=== PATIENT | female | born 1945 | race Caucasian/White ===

== ENCOUNTER → 2023-11-19 11:40 | Outpatient (BNVA) | payer OTHER, SELFPAY | PROVIDERS: Visit Provider Psychiatry & Neurology Neurology | DX: G20.A1 Parkinson's disease without dyskinesia, without mention of fluctuations (principal); R26.9 Unspecified abnormalities of gait and mobility | CPT/HCPCS: 99202 ==

== ENCOUNTER 2024-05-12 15:49 | Outpatient (AMB) | payer OTHER, SELFPAY ==
[2024-05-12 15:52] VITALS: BP 134/82
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
== END 2024-05-12 16:24 | disposition home or self-care (01) ==
PROVIDERS: Visit Provider Psychiatry & Neurology Neurology
DX: G20.A1 Parkinson's disease without dyskinesia, without mention of fluctuations (principal); R26.9 Unspecified abnormalities of gait and mobility
CPT/HCPCS: 99214; G2211

== ENCOUNTER → 2024-05-12 15:49 | Outpatient (BNVA) | payer OTHER, SELFPAY | PROVIDERS: Visit Provider Psychiatry & Neurology Neurology | DX: G20.A1 Parkinson's disease without dyskinesia, without mention of fluctuations (principal); R26.9 Unspecified abnormalities of gait and mobility | CPT/HCPCS: 99212 ==

== ENCOUNTER 2024-08-03 08:50 | Outpatient (AMB) | payer OTHER, SELFPAY ==
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
[2024-08-03 08:56] VITALS: BP 106/64; PULSE 65; O2SAT 97; BMI 33.6
== END 2024-08-03 10:06 | disposition home or self-care (01) ==
PROVIDERS: Visit Provider Physician Assistant Medical
DX: G20.A1 Parkinson's disease without dyskinesia, without mention of fluctuations (principal); M47.812 Spondylosis without myelopathy or radiculopathy, cervical region; R26.9 Unspecified abnormalities of gait and mobility
CPT/HCPCS: 99214; G2211

== ENCOUNTER 2025-05-24 08:40 | Outpatient (AMB) | payer OTHER, SELFPAY ==
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
[2025-05-24 08:42] VITALS: BP 124/76; PULSE 84; O2SAT 96
--- OUTSIDE RECORDS SUMMARY | 2025-05-24 09:08 | XMS_ITS | Encounter Summary ---
Author Organization Formerly [facility] Address [address] [place] [id number] Phone Care Team Providers Care Food Selector Name Role Phone Hugo Harrison MD Unavailable [phone] Maninder Avila MD Unavailable [phone] Sheila Prado MD Unavailable [phone] Sheila Prado MD Primary Care Provider + Encounter Details Date Type Department Care Team (Late st Contact Info) Description 03/07/2023 Procedure Pass [address] [place] [address] Social History Tobacco Use Types Packs/Day Years Used Date Smoking Tobacco: Never Smokeless Tobacco: Never Comments:Exposed to second h and smoke most of her life Alcohol Use Standard Drinks/Week Comments No 0 (1 standard drink = 0.6 oz pur e alcohol) Education Answer Date Recorded Are you interested in more education? Not on mason e 11/23/2022 Are you concerned about learning? Not on file 11/23/2022 No 11/23/2022 No 11/23/2022 Digital Access Answer Date Recorded No 12/24/2022 No 12/24/2022 Reliable internet access at home? Not on file 12/24/2022 Device with a working camera? Not on file Comments No Sex and Gender Information Value Date Recorded Sex Assigned at Female 07/01/2018 4:13 AM EST Legal Sex Female 10:07 PM EDT Gender Identity Female 07/01/2018 4:13 AM EST Sexual Orientation Straight 03/08/2020 2: 08 PM EDT documented as of this encounter Plan of Treatment Not on file documented as of this encounter Visit Diagnoses Not on filedocumented in this encounter Care Teams Food Selector Relationship Specialty Start Date End Date Sheila Prado MD [address] [place] [id number] PCP - General 05/13/17 Hugo Harrison MD [address] [place] [address], [address] [id number] Historical LMR Provider 05/13/17 Maninder Avila MD [address] [place] [id number] Historical LMR Provider 05/13/17 Sheila Prado MD [address] [place] [id number] Historical LMR Provider 05/13/17 documented as of this encounter Additional Source Comments The information contained in this document represents components of the legal health record. It is not the complete legal health record.[facility]ly [facility]
--- OUTSIDE RECORDS SUMMARY | 2025-05-24 09:08 | XMS_ITS | Encounter Summary ---
Author Organization [facility] Address [address] [place] [address] [place] [address] Phone Care Team Providers Care Tea Bag Machine Tender Name Role Phone Hugo Harrison MD Unavailable [phone] Maninder Avila MD Unavailable Sheila Pardo MD Unavailable Sheila Prado MD Primary Care Provider + Encounter Details Date Type Department Care Team (Late st Contact Info) Description 02/28/2023 Ancillary Orders [facility], X-Ray - [address] [phone] Katie Burgos, RUBBER GRINDER [address] [place] [phone] [email or web address] Spinal stenosis, lumbar region with neurogenic claudication; Radiculopathy, lumbar region Social History Tobacco Use Types Packs/Day Years [...] on file documented as of this encounter Results * XR LUMBOSACRAL SPINE 4 OR MORE VIEWS (02/28/2023 4:27 PM EDT) Anatomical Region Laterality Modality L-spine Computed Radiogr aphy 03/03/2023 11:5 6 PM EDT Impressions 03/03/2023 11:57 PM EDT Moderate lumbar spine degenerative change, most prominent at L5-S1. Narrative 03/03/2023 11:57 PM EDT XR LUMBOSACRAL SPINE 4 OR MORE VIEWS COMPARISON: MRI SPINE LUMBAR WO FINDINGS: ALIGNMENT: No spondylolisthesis. VERTEBRAE: Bones demineralized. Vertebral body heights preserved. DISCS: Disc height loss and endplate sclerosis and marginal osteophytes at L5- S1. FACETS: Facet arthropathy L3-S1. PARASPINAL SOFT TISSUES: Mild to moderate sacroiliac joint degenerative change. Surgical clip in the right upper quadrant. Procedure Note Lisandra Dickson MD - 03/03/2023 XR LUMBOSACRAL SPINE 4 OR MORE VIEWS COMPARISON: MRI SPINE LUMBAR WO FINDINGS: ALIGNMENT: No spondylolisthesis. VERTEBRAE: Bones demineralized. Vertebral body heights preserved. DISCS: Disc height loss and endplate sclerosis and marginal osteophytes atL5-S1. FACETS: Facet arthropathy L3-S1. PARASPINAL SOFT TISSUES: Mild to moderate sacroiliac joint degenerativechange. Surgical clip in the right upper quadrant. IMPRESSION: Moderate lumbar spine degenerative change, most prominent at L5-S1. Katie Burgos NP IMG XR SPINE Final Result * XR HIPS 2+ VW EA BILAT PLUS PELVIS (02/28/2023 4:27 PM EDT) Anatomical Region Laterality Modality Hip, Pelvis Computed Radiogr aphy 03/03/2023 11:5 5 PM EDT Impressions 03/03/2023 11:56 PM EDT Bones demineralized. Severe hip osteoarthritis, progressed from 2016. Narrative 03/03/2023 11:56 PM EDT XR HIPS 2+ VW EA BILAT PLUS PELVIS COMPARISON: HIPS FINDINGS: PELVIS: Pelvic ring intact. No displaced fracture. Degenerative changes of the lower lumbar spine, sacroiliac joints, and pubic symphysis. Gluteal enthesopathy at the iliac crests. Bones demineralized. RIGHT HIP: Severe right hip joint space narrowing with dicg-zu-hxgf contact, femoral head remodeling, and exuberant bony proliferative change. LEFT HIP: Severe hip joint space narrowing with ewsx-rm-mucy contact, femoral head remodeling, and exuberant bony proliferative change. Procedure Note Lisandra Dickson MD - 03/03/2023 XR HIPS 2+ VW EA BILAT PLUS PELVIS COMPARISON: HIPS 2015- FINDINGS: PELVIS: Pelvic ring intact. No displaced fracture. Degenerative changes ofthe lower lumbar spine, sacroiliac joints, and pubic symphysis. Glutealenthesopathy at the iliac crests. Bones demineralized. RIGHT HIP: Severe right hip joint space narrowing with olln-mf-jfyolanmjsu, femoral head remodeling, and exuberant bony proliferativechange. LEFT HIP: Severe hip joint space narrowing with mkfg-pu-nvps contact,femoral head remodeling, and exuberant bony proliferative change. IMPRESSION: Bones demineralized. Severe hip osteoarthritis, progressed from 2016. Katie Burgos NP IMG XR PELVIS Final Result documented in this encounter Visit Diagnoses Diagnosis Spinal stenosis, lumbar region with neurogenic claudication Radiculopathy, lumbar region Thoracic or lumbosacral neuritis or radiculitis, unspecified Radiculopathy, lumbar region Thoracic or lumbosacral neuritis or radiculitis, unspecified Spinal stenosis, lumbar region with neurogenic claudication documented in this encounter Care Teams Tea Bag Machine Tender Relationship Specialty Start Date End Date Sheila Prado MD [address] [place] [address] PCP - General 05/13/17 Hugo Harrison MD [address] [place] [address] Historical LMR Provider 05/13/17 Maninder Avila MD [address] [place] [address] Historical LMR Provider 05/13/17 Sheila Prado MD [address] [place] [address] Historical LMR Provider 05/13/17 documented as of this encounter Additional Source Comments The information contained in this document represents components of the legal health record. It is not the complete legal health record.[facility]
--- OUTSIDE RECORDS SUMMARY | 2025-05-24 09:08 | XMS_ITS | Encounter Summary ---
Author Organization [facility] Address [address] [address] Phone Care Team Providers Care Unhairing Inspector Name Role Phone Taylor Brand PA-C Unavailable Kyle Callejas MD Unavailable Hugo Harrison MD Unavailable Tommy Newell MD Unavailable [phone] Maninder Avila MD Unavailable Matthias Delgado MD Unavailable Sheila Prado MD Unavailable Aliya Huggins MD Unavailable Sheila Prado MD Primary Care Provider + Encounter Details Date Type Department Care Team (Late st Contact Info) Description 02/10/2020 Ancillary Orders Virtual Department [address] [place] [address] Sheila Prado MD [address] [place] [address] [email or web address] Pain and swelling of lower extremity, left Social History Tobacco Use Types Packs/Day Years Used Date Smoking Tobacco: Never Smokeless Tobacco: Never Comments:Exposed to second h and smoke most of her life Alcohol Use Standard Drinks/Week Comments No 0 (1 standard drink = 0.6 oz pur e alcohol) Comments No Sex and Gender Information Value Date Recorded Sex Assigned at Female 07/01/2018 4:13 AM EST Legal Sex Female 10:07 PM EDT Gender Identity Female 07/01/2018 4:13 AM EST Sexual Orientation Straight 03/08/2020 2: 08 PM EDT documented as of this encounter Plan of Treatment Not on file documented as of this encounter Results * US Lower Extremity Veins Duplex (Left) (02/10/2020 2:40 PM EDT) Anatomical Region Laterality Modality Hip Left, Thigh Left, Knee L eft, Leg Left, Ankle Left, Foot Left Ultrasound 02/10/2020 3:07 PM EDT Impressions 02/10/2020 3:07 PM EDT No evidence of deep venous thrombosis in left lower extremity. POS - [id number] Narrative 02/10/2020 3:07 PM EDT HISTORY: Pain and swelling in the left lower extremity. COMPARISON:Left TECHNIQUE: Evaluation of the deep venous system of the left lower extremity is performed, including the calf veins. FINDINGS: The veins of the deep venous system of the left leg is clear and compresses normally. Normal Doppler flow was demonstrated. Augmentation maneuvers are normal. No evidence of masses in the popliteal fossa. Procedure Note Delbert Maria MD - 02/10/2020 HISTORY: Pain and swelling in the left lower extremity. COMPARISON:Left TECHNIQUE: Evaluation of the deep venous system of the left lowerextremity is performed, including the calf veins. FINDINGS: The veins of the deep venous system of the left leg is clear andcompresses normally. Normal Doppler flow was demonstrated. Augmentationmaneuvers are normal. No evidence of masses in the popliteal fossa. IMPRESSION: No evidence of deep venous thrombosis in left lower extremity. POS - [id number] Sheila Prado MD US VASCULAR Final Re sult documented in this encounter Visit Diagnoses Diagnosis Pain and swelling of lower extremity, left Pain and swelling of lower extremity, left documented in this encounter Care Teams Unhairing Inspector Relationship Specialty Start Date End Date Sheila Prado MD [address] [place] [address] [email or web address] PCP - General 05/13/17 Taylor Brand PA-C [address] [place] [address] [email or web address] Historical LMR Provider 05/13/17 08/05/21 Kyle Callejas MD [address] [place] [address] [email or web address] Historical LMR Provider 05/13/17 08/05/21 Hugo Harrison MD [address] [place] [address] [email or web address] Historical LMR Provider 05/13/17 Tommy Newell MD [address] [place] [address] [email or web address] Historical LMR Provider 05/13/17 08/05/21 Maninder Avila MD [address] [place] [address] [email or web address] Historical LMR Provider 05/13/17 Matthias Delgado MD [address] [place] [address] [email or web address] Historical LMR Provider 05/13/17 08/05/21 Sheila Prado MD [address] [place] [address] [email or web address] Historical LMR Provider 05/13/17 Aliya Huggins MD [address] [place] [address] [email or web address] Historical LMR Provider 05/13/17 08/05/21 documented as of this encounter Additional Source Comments The information contained in this document represents components of the legal health record. It is not the complete legal health record.[facility]
--- OUTSIDE RECORDS SUMMARY | 2025-05-24 09:08 | XMS_ITS | Encounter Summary ---
Author Organization [facility] Address [address] [place] [address] Phone Care Team Providers Care Private Duty Rn Name Role Phone Hugo Harrison MD Unavailable [phone] Maninder Avila MD Unavailable [phone] Sheila Prado MD Unavailable [phone] Sheila Prado MD Primary Care Provider + Reason for Referral * MRI/CAT Scan - Closed Specialty Diagnoses / Procedures Referred By Contac t Referred To Contact Radiology Diagnoses Spinal stenosis, cervical region Procedures MRI Cervical Spine CHG MRI, CERV SPINE CHG MRI, CERV SPINE COMBO CHG MRI, CERV SPINE CONTRAST Katie Burgos NP Phone: tel: fax: [email or web address] Referral ID Status Reason Start Date Expiration Date Visits Re quested Visits Authorized [id number] Closed 02/28/2023 04/28/2023 1 1 Encounter Details Date Type Department Care Team (Latest Contact Info) Description 02/28/2023 Transcribe Orders Virtual Department 30 [place] [address] Katie Burgos NP [address] [place] [phone] [email or web address] Spinal stenosis, cervical region (Primary Dx) Social History Tobacco Use Types Packs/Day Years [...] documented as of this encounter Results * MRI CERVICAL SPINE (BONE) WITHOUT CONTRAST (03/21/2023 5:12 PM EDT) Anatomical Region Laterality Modality C-spine Magnetic Resonan ce 03/24/2023 1:21 PM EDT Impressions 03/24/2023 1:43 PM EDT Multilevel degenerative change of the cervical spine, which is progressed since 2016. There is severe left foraminal stenosis at C4-C5. Moderate to severe right foraminal stenosis at C5-C6. And moderate to severe spinal canal stenosis at C6-C7. No definite spinal cord signal abnormality. Narrative 03/24/2023 1:43 PM EDT MRI CERVICAL SPINE (BONE) WITHOUT CONTRAST TECHNIQUE: Multi-sequence, multi-planar MRI of the cervical spine was performed without intravenous contrast. COMPARISON: MRI SPINE CERVICAL WO FINDINGS: Grade 1 anterolisthesis of C3 on C4, C4 and C5, and C5 on C6. Retrolisthesis of C6 on C7. Alignment is relatively similar to 2016. No compression deformity. No substantial discogenic edema. Multilevel degenerative disc disease, most notable at C6-7. Slight deformity of the cervical spinal cord at C4-C5 and C6-C7. No definite spinal cord signal abnormality. Partially visualized intracranial structures are unremarkable. No acute finding or incidental knee soft tissues for which follow-up is required. Findings by level: C2-C3: Posterior disc osteophyte complex, with central protrusion. Moderate bilateral facet arthropathy, right greater than left. Ligamentum flavum thickening. Mild spinal canal and bilateral foraminal stenosis. Findings are progressed since 2016. C3-C4: Posterior disc osteophyte complex. Moderate bilateral facet arthropathy. Ligamentum flavum thickening. Mild spinal canal and bilateral foraminal stenosis. Findings are only minimally progressed since 2016. C4-C5: Endplate osteophytosis. Posterior disc osteophyte complex. Uncovertebral hypertrophy on the left. Moderate bilateral facet arthropathy. Mild spinal canal stenosis, with slight deformity of the ventral spinal cord. No signal abnormality. Severe left and moderate right foraminal stenosis. Findings are progressed since 2016. C5-C6: Posterior disc osteophyte complex. Bilateral uncovertebral hypertrophy, greater on left. Severe right and moderate left facet arthropathy. Moderate to severe right and rmyy-vp-nrlrbzrz left foraminal stenosis. Spinal canal stenosis is overall mild. Findings are progressed since 2016. C6-C7: Posterior disc osteophyte complex. Mild bilateral facet arthropathy. Ligamentum flavum thickening. Moderate to severe spinal canal stenosis, with indentation of the ventral spinal cord. No definite cord signal abnormality. Findings are progressed since 2016. There is moderate bilateral foraminal stenosis, left greater than right. C7-T1: Bilateral facet arthropathy. Mild bilateral foraminal stenosis. No substantial spinal canal stenosis. Findings are overall similar to 2016. Procedure Note Abdirizak Powell MD - 03/24/2023 MRI CERVICAL SPINE (BONE) WITHOUT CONTRAST TECHNIQUE: Multi-sequence, multi-planar MRI of the cervical spine wasperformed without intravenous contrast. COMPARISON: MRI SPINE CERVICAL WO FINDINGS: Grade 1 anterolisthesis of C3 on C4, C4 and C5, and C5 on C6.Retrolisthesis of C6 on C7. Alignment is relatively similar to 2016. Nocompression deformity. No substantial discogenic edema. Multileveldegenerative disc disease, most notable at C6-7. Slight deformity of thecervical spinal cord at C4-C5 and C6-C7. No definite spinal cord signalabnormality. Partially visualized intracranial structures areunremarkable. No acute finding or incidental knee soft tissues for whichfollow-up is required. Findings by level: C2-C3: Posterior disc osteophyte complex, with central protrusion.Moderate bilateral facet arthropathy, right greater than left. Ligamentumflavum thickening. Mild spinal canal and bilateral foraminal stenosis.Findings are progressed since 2016. C3-C4: Posterior disc osteophyte complex. Moderate bilateral facetarthropathy. Ligamentum flavum thickening. Mild spinal canal and bilateralforaminal stenosis. Findings are only minimally progressed since 2016. C4-C5: Endplate osteophytosis. Posterior disc osteophyte complex.Uncovertebral hypertrophy on the left. Moderate bilateral facetarthropathy. Mild spinal canal stenosis, with slight deformity of theventral spinal cord. No signal abnormality. Severe left and moderate rightforaminal stenosis. Findings are progressed since 2016. C5-C6: Posterior disc osteophyte complex. Bilateral uncovertebralhypertrophy, greater on left. Severe right and moderate left facetarthropathy. Moderate to severe right and nmtc-sk-tcfrnryb left foraminalstenosis. Spinal canal stenosis is overall mild. Findings are progressedsince 2016. C6-C7: Posterior disc osteophyte complex. Mild bilateral facetarthropathy. Ligamentum flavum thickening. Moderate to severe spinal canalstenosis, with indentation of the ventral spinal cord. No definite cordsignal abnormality. Findings are progressed since 2016. There is moderatebilateral foraminal stenosis, left greater than right. C7-T1: Bilateral facet arthropathy. Mild bilateral foraminal stenosis. Nosubstantial spinal canal stenosis. Findings are overall similar to 2016. IMPRESSION: Multilevel degenerative change of the cervical spine, which is progressedsince 2016. There is severe left foraminal stenosis at C4-C5. Moderate tosevere right foraminal stenosis at C5-C6. And moderate to severe spinalcanal stenosis at C6-C7. No definite spinal cord signal abnormality. Katie Burgos NP IMG MR XSPECIALTY Final Result documented in this encounter Visit Diagnoses Diagnosis Spinal stenosis, cervical region- Primary Spinal stenosis, cervical region documented in this encounter Care Teams Private Duty Rn Relationship Specialty Start Date End Date Sheila Prado MD [address] [place] [address] PCP - General 05/13/17 Hugo Harrison MD [address] [place] [address], [facility] [address] [place] [address] Historical LMR Provider 05/13/17 Maninder Avila MD [address] [place] [address] Historical LMR Provider 05/13/17 Sheila Prado MD [address] [place] [address] Historical LMR Provider 05/13/17 documented as of this encounter Additional Source Comments The information contained in this document represents components of the legal health record. It is not the complete legal health record.[facility]
--- OUTSIDE RECORDS SUMMARY | 2025-05-24 09:08 | XMS_ITS | Encounter Summary ---
Author Organization [facility] Address [address] [place] [address] Phone Care Team Providers Care Court Recorder Name Role Phone Taylor Brand PA-C Unavailable Kyle Callejas MD Unavailable [phone] Hugo Harrison MD Unavailable [phone] Tommy Newell MD Unavailable [phone] Maninder Avila MD Unavailable Matthias Delgado MD Unavailable Sheila Prado MD Unavailable Aliya Huggins MD Unavailable Sheila Prado MD Primary Care Provider + Encounter Details Date Type Department Care Team (Late st Contact Info) Description 12/29/2018 Ancillary Orders Virtual Department [address] [place] [address] Sheila Prado MD [address] [place] [phone] Breast screening Social History Tobacco Use Types Packs/Day Years Used Date Smoking Tobacco: Never Smokeless Tobacco: Never Comments:Exposed to second h and smoke most of her life Alcohol Use Standard Drinks/Week Comments No 0 (1 standard drink = 0.6 oz pur e alcohol) Comments Unknown Sex and Gender Information Value Date Recorded Sex Assigned at Female 07/01/2018 4:13 AM EST Legal Sex Female 10:07 PM EDT Gender Identity Female 07/01/2018 4:13 AM EST Sexual Orientation Straight 03/08/2020 2: 08 PM EDT documented as of this encounter Plan of Treatment Not on file documented as of this encounter Results * BI MAMMOGRAM SCREENING WITH TOMOSYNTHESIS WITH CAD (BILATERAL) (01/07/2019 1:10 PM EDT) Anatomical Region Laterality Modality Breast Left, Breast Right, Breast Bilateral Bila teral Mammography 01/07/2019 1:37 PM EDT Impressions 01/07/2019 1:42 PM EDT No mammographic evidence of malignancy. Recommend routine annual surveillance. BI-RADS CATEGORY: 2 - Benign finding. DENSITY: There are scattered fibroglandular densities. POS - CDHMAMA Narrative 01/07/2019 1:42 PM EDT 73-year-old female with no current breast symptoms. Comparison made to previous on 07/11/2015 which is the most recent and as far back as 05/15/2005. Interpretation made in conjunction with computer-aided detection and tomosynthesis. There are scattered areas of fibroglandular density. Mild increase in number of multiple benign bilateral scattered calcifications. There are no suspicious masses, areas of architectural distortion, or suspicious clusters of microcalcifications. Procedure Note Angella Velazquez MD - 01/07/2019 73-year-old female with no current breast symptoms. Comparison made toprevious on 07/11/2015 which is the most recent and as far back as1. Interpretation made in conjunction with computer-aideddetection and tomosynthesis. There are scattered areas of fibroglandular density. Mild increase innumber of multiple benign bilateral scattered calcifications. There are no suspicious masses, areas of architectural distortion, orsuspicious clusters of microcalcifications. IMPRESSION: No mammographic evidence of malignancy. Recommend routine annualsurveillance. BI-RADS CATEGORY: 2 - Benign finding. DENSITY: There are scattered fibroglandular densities. POS - CDHMAMA us Sheila Prado MD IMG MG EXAMS Final Re sult documented in this encounter Visit Diagnoses Diagnosis Breast screening Breast screening, unspecified Breast screening Breast screening, unspecified documented in this encounter Care Teams Court Recorder Relationship Specialty Start Date End Date Sheila Prado MD [address] [place] [address] [email or web address] PCP - General 05/13/17 Taylor Brand PA-C [address] [place] [address] Historical LMR Provider 05/13/17 08/05/21 Kyle Callejas MD [address] [place] [address] Historical LMR Provider 05/13/17 08/05/21 Hugo Harrison MD [address] [place] [address] [email or web address] Historical LMR Provider 05/13/17 Tommy Newell MD [address] [place] [address] Historical LMR Provider 05/13/17 08/05/21 Maninder Avila MD [address] [place] [address] [email or web address] Historical LMR Provider 05/13/17 Matthias Delgado MD [place] [facility] [address] [place] [address] [email or web address] Historical LMR Provider 05/13/17 08/05/21 Sheila Prado MD [address] [place] [address] [email or web address] Historical LMR Provider 05/13/17 Aliya Huggins MD [address] [place] [address] [email or web address] Historical LMR Provider 05/13/17 08/05/21 documented as of this encounter Additional Source Comments The information contained in this document represents components of the legal health record. It is not the complete legal health record.[facility]
--- OUTSIDE RECORDS SUMMARY | 2025-05-24 09:08 | XMS_ITS | Encounter Summary ---
Author Organization [facility] Address [address] [place] [address] Phone Care Team Providers Care Underground Production Foreperson Name Role Phone Hugo Harrison MD Unavailable Maninder Avila MD Unavailable [phone] Sheila Prado MD Unavailable Sheila Prado MD Primary Care Provider + Reason for Referral * MRI/CAT Scan - Closed Specialty Diagnoses / Procedures Referred By Contac t Referred To Contact Radiology Diagnoses Spondylolisthesis, unspecified spinal region Procedures MRI Lumbar Spine CHG MRI, LUMBAR SPINE CHG MRI, LUMBAR SPINE COMBO CHG MRI, LUMBAR SPINE CONTRAST Katie Burgos NP Phone: tel: fax: [email or web address] Referral ID Status Reason Start Date Expiration Date Visits Re quested Visits Authorized [id number] Closed 02/28/2023 04/28/2023 1 1 Encounter Details Date Type Department Care Team (Latest Contact Info) Description 03/07/2023 Transcribe Orders Virtual Department [address] [place] [address] Katie Burgos NP [address] [place] [phone] [email or web address] Spondylolisthesis, unspecified spinal region (Primary Dx) Social History Tobacco Use [...] as of this encounter Results * MRI LUMBAR SPINE (NEURO) WITHOUT CONTRAST (03/29/2023 5:43 PM EDT) Anatomical Region Laterality Modality L-spine Magnetic Resonan ce 04/01/2023 10:2 5 PM EDT Impressions 04/03/2023 10:28 PM EDT Congenitally short pedicles. When compared to 03/07/2016: Worsening multilevel spinal canal stenoses, now severe at L2-3, moderate to severe L3-4, moderate at L4-5, and mild at T11-T12 and L1-L2. Multilevel neuroforaminal stenoses, moderate at L2-3, moderate left and mild right L3-4, and mild at L1-2, L4-5, and L5-S1. Increasing facet bone marrow edema at L4-5, may reflect an axial pain generator. Narrative 04/03/2023 10:28 PM EDT MRI LUMBAR SPINE (NEURO) WITHOUT CONTRAST TECHNIQUE: MRI LUMBAR SPINE (NEURO) WITHOUT CONTRAST COMPARISON: MRI SPINE LUMBAR WO FINDINGS: ALIGNMENT: No spondylolisthesis. MARROW: No compression fracture or marrow replacing lesion. DISCS: Disc desiccation T11-12, L1-L3 and L5-S1. Endplate marrow edema at T11- 12. CONUS: Normal appearance and terminates at L1. PARASPINAL SOFT TISSUES: Moderate posterior paraspinal muscle atrophy. Facet bone marrow and surrounding soft tissue edema at L4-5. FINDINGS BY LEVEL: Congenitally short pedicles. T11-T12: Diffuse disc bulge, facet arthropathy, and thickening of ligamentum flavum. Mild spinal canal. No neuroforaminal stenosis. T12-L1:Diffuse disc bulge, facet arthropathy, and thickening of ligamentum flavum. No spinal canal or neuroforaminal stenosis. L1-2: Diffuse disc bulge, facet arthropathy, and thickening of ligamentum flavum. Mild spinal canal stenosis. Mild neuroforaminal stenosis. L2-3: Diffuse disc bulge, facet arthropathy, and thickening of ligamentum flavum. Severe spinal canal stenosis. Moderate neuroforaminal stenosis. L3-4: Diffuse disc bulge, facet arthropathy, and thickening of ligamentum flavum. Moderate to severe spinal canal stenosis. Moderate left and mild right neuroforaminal stenosis. L4-5: Diffuse disc bulge, facet arthropathy, and thickening of ligamentum flavum. Moderate spinal canal stenosis. Mild neuroforaminal stenosis. L5-S1: Diffuse disc bulge, central disc protrusion, facet arthropathy, and thickening of ligamentum flavum. No spinal canal stenosis. Mild neuroforaminal stenosis. Procedure Note Lisandra Dickson MD - 04/03/2023 MRI LUMBAR SPINE (NEURO) WITHOUT CONTRAST TECHNIQUE: MRI LUMBAR SPINE (NEURO) WITHOUT CONTRAST COMPARISON: MRI SPINE LUMBAR WO FINDINGS: ALIGNMENT: No spondylolisthesis. MARROW: No compression fracture or marrow replacing lesion. DISCS: Disc desiccation T11-12, L1-L3 and L5-S1. Endplate marrow edema [id number]. CONUS: Normal appearance and terminates at L1. PARASPINAL SOFT TISSUES: Moderate posterior paraspinal muscle atrophy.Facet bone marrow and surrounding soft tissue edema at L4-5. FINDINGS BY LEVEL: Congenitally short pedicles. T11-T12: Diffuse disc bulge, facet arthropathy, and thickening ofligamentum flavum. Mild spinal canal. No neuroforaminal stenosis. T12-L1:Diffuse disc bulge, facet arthropathy, and thickening of ligamentumflavum. No spinal canal or neuroforaminal stenosis. L1-2: Diffuse disc bulge, facet arthropathy, and thickening of ligamentumflavum. Mild spinal canal stenosis. Mild neuroforaminal stenosis. L2-3: Diffuse disc bulge, facet arthropathy, and thickening of ligamentumflavum. Severe spinal canal stenosis. Moderate neuroforaminal stenosis. L3-4: Diffuse disc bulge, facet arthropathy, and thickening of ligamentumflavum. Moderate to severe spinal canal stenosis. Moderate left and mildright neuroforaminal stenosis. L4-5: Diffuse disc bulge, facet arthropathy, and thickening of ligamentumflavum. Moderate spinal canal stenosis. Mild neuroforaminal stenosis. L5-S1: Diffuse disc bulge, central disc protrusion, facet arthropathy, andthickening of ligamentum flavum. No spinal canal stenosis. Mildneuroforaminal stenosis. IMPRESSION: Congenitally short pedicles. When compared to 03/07/2016: Worsening multilevel spinal canal stenoses, now severe at L2-3, moderateto severe L3-4, moderate at L4-5, and mild at T11-T12 and L1-L2. Multilevel neuroforaminal stenoses, moderate at L2-3, moderate left andmild right L3-4, and mild at L1-2, L4-5, and L5-S1. Increasing facet bone marrow edema at L4-5, may reflect an axial paingenerator. Katie Burgos NP IMG MR XSPECIALTY Final Result documented in this encounter Visit Diagnoses Diagnosis Spondylolisthesis, unspecified spinal region- Primary Spondylolisthesis, unspecified spinal region documented in this encounter Care Teams Underground Production Foreperson Relationship Specialty Start Date End Date Sheila Prado MD [address] [place] [address] [email or web address] PCP - General 05/13/17 Hugo Harrison MD [address] [place] [address], [facility] [address] [place] [address] [email or web address] Historical LMR Provider 05/13/17 Maninder Avila MD [address] [place] [address] [email or web address] Historical LMR Provider 05/13/17 Sheila Prado MD [address] [place] [address] [email or web address] Historical LMR Provider 05/13/17 documented as of this encounter Additional Source Comments The information contained in this document represents components of the legal health record. It is not the complete legal health record.[facility]
--- OUTSIDE RECORDS SUMMARY | 2025-05-24 09:08 | XMS_ITS | Encounter Summary ---
Author Organization [facility] Address [address] [place] [address] Phone Care Team Providers Care Earth Science Teacher Name Role Phone Taylor Brand PA-C Unavailable Kyle Callejas MD Unavailable [phone] Hugo Harrison MD Unavailable [phone] Tommy Newell MD Unavailable [phone] Maninder Avila MD Unavailable [phone] Matthias Delgado MD Unavailable Sheila Prado MD Unavailable [phone] Aliya Huggins MD Unavailable Sheila Prado MD Primary Care Provider + Encounter Details Date Type Department Care Team (Latest Contact Info) Description 12/25/2017 Transcribe Orders [address] [place] [address] Sheila Prado MD [address] [place] [address] [email or web address] Type 2 diabetes mellitus without complication, unspecified fdc insulin use status (Primary Dx); Pure hypercholesterolemia Social History Tobacco Use Types Packs/Day Years Used Date Smoking Tobacco: Never Smokeless Tobacco: Never Comments:Exposed to second h and smoke most of her life Comments Unknown Sex and Gender Information Value Date Recorded Sex Assigned at Female 07/01/2018 4:13 AM EST Legal Sex Female 10:07 PM EDT Gender Identity Female 07/01/2018 4:13 AM EST Sexual Orientation Straight 03/08/2020 2: 08 PM EDT documented as of this encounter Plan of Treatment Not on file documented as of this encounter Results * (ABNORMAL) Microalbumin/creatinine ratio, random urine (12/25/2017 7:19 AM EDT) URINE MICROALBUMIN 2.7(H) 0 - 2.3 mg/dL [facility] URINE CREATININE 286 mg/dL [facility] MICROALB/CRE RATIO 9.4 0 - 20 mg/g Cre [facility] Urine (Urine) 12/25/2017 7:1 9 AM EDT 12/25/2017 7:22 AM EDT us Sheila Prado MD URINE ORDERABLES Final R esult Performing Organization Address City/State/[facility] Co de Phone Number [address] [address] * (ABNORMAL) Lipid panel (12/25/2017 7:19 AM EDT) HDL 63 mg/dL [facility] Comment: Interpretation: Risk Level Females Decreased >55mg/dL Average 50-55 mg/dL Increased <50 mg/dL CHOLESTEROL 146 0 - 240 mg/dL [facility] TRIGLYCERIDES 119 30 - 160 mg/dL [facility] LDL 59 50 - 129 mg/dL [facility] Comment: LDL levels in terms of risk for coronary heart disease: <100 mg/dL: Optimal 100-129 mg/dL: Near or above optimal 130-159 mg/dL: Borderline high 160-189 mg/dL: High >190 mg/dL: Very High CARDIAC RISK RATIO 2.3(L) 3.3 - 4.4 C [facility] Blood 12/25/2017 7:19 AM EDT 12/25/2017 7:21 AM EDT us Sheila Prado MD LAB BLOOD ORDERABLES Fin al Result Performing Organization Address City/[facility]/ZIP Co de Phone Number [address] [address] * (ABNORMAL) Comprehensive metabolic panel (12/25/2017 7:19 AM EDT) SODIUM 145 133 - 146 mmol/L [facility] POTASSIUM 5.0 3.3 - 5.1 mmol/L [facility] CHLORIDE 104 96 - 108 mmol/L [facility] CO2 28 21 - 35 mmol/L [facility] BUN 19 6 - 19 mg/dL [facility] CREATININE 1.00 0.5 - 1.5 mg/dL [facility] GLUCOSE 114(H) 70 - 99 mg/dL [facility] ALBUMIN 4.2 3.9 - 4.8 g/dL [facility] TOTAL PROTEIN 7.9 6.5 - 8.0 g/dL [facility] CALCIUM 9.7 8.4 - 10.3 mg/dL [facility] ALKALINE PHOSPHATASE 78 39 - 117 U/L [facility] TOTAL BILIRUBIN 0.3 0.0 - 1.2 mg/dL [facility] AST 23 0 - 37 U/L [facility] ALT 15 0 - 40 U/L [facility] GLOBULIN 3.7 1 - 4.8 g/dL [facility] EGFR 57(L) >59 mL/min/1.7 3m2 [facility] Comment:If patient is black, multiply result by 1.159. The eGFR calculation has changed from the MDRD equation to the CKD-EPI equation as of October 01, 2017. ANION GAP 18 10 - 20 mmol/L [facility] Blood 12/25/2017 7:19 AM EDT 12/25/2017 7:21 AM EDT us Sheila Prado MD LAB BLOOD ORDERABLES Fin al Result [address] [address] * C-reactive protein, high sensitivity (12/25/2017 7:19 AM EDT) CRP, HIGH SENSITIVITY 0.4 0.0 - 5.0 mg/L [facility] Comment: Interpretation: hsCRP level (mg/L) Relative Risk <1.0 Low 1.0 - 3.0 Average >3.0 High Neonates (0-3 weeks): 0.1 - 4.1 mg/L Children (2 months - 15 years): 0.1 - 2.8 mg/L New Reference Range and Measuring Units effective 12/10/2017. Blood 12/25/2017 7:19 AM EDT 12/25/2017 7:21 AM EDT us Sheila Prado MD LAB BLOOD ORDERABLES Fin al Result Performing Organization Address [facility]/ZIP Co de Phone Number [address] [address] * (ABNORMAL) Hemoglobin A1c (12/25/2017 7:19 AM EDT) HEMOGLOBIN A1C 6.3(H) 4.3 - 5.8 % [facility] Blood 12/25/2017 7:19 AM EDT 12/25/2017 7:21 AM EDT us Sheila Prado MD LAB BLOOD ORDERABLES Fin al Result Performing Organization Address [facility]/ZIP Co de Phone Number [address] [address] documented in this encounter Visit Diagnoses Diagnosis Type 2 diabetes mellitus without complication, unspecified fdc insulin use status- Primary Pure hypercholesterolemia documented in this encounter Care Teams Earth Science Teacher Relationship Specialty Start Date End Date Sheila Prado MD [address] [place] [address] [email or web address] PCP - General 05/13/17 Taylor Brand PA-C [address] [place] [address] Historical LMR Provider 05/13/17 08/05/21 Kyle Callejas MD [address] [place] [address] [email or web address] Historical LMR Provider 05/13/17 08/05/21 Hugo Harrison MD [address] [place] [address] [email or web address] Historical LMR Provider 05/13/17 Tommy Newell MD [address] [place] [address] [email or web address] Historical LMR Provider 05/13/17 08/05/21 Maninder Avila MD [address] [place] [address] [email or web address] Historical LMR Provider 05/13/17 Matthias Delgado MD [address] [place] [address] [email or web address] Historical LMR Provider 05/13/17 08/05/21 Sheila Prado MD [address] [place] [address] [email or web address] Historical LMR Provider 05/13/17 Aliya Huggins MD [address] [place] [address] [email or web address] Historical LMR Provider 05/13/17 08/05/21 documented as of this encounter Additional Source Comments The information contained in this document represents components of the legal health record. It is not the complete legal health record.[facility]
--- OUTSIDE RECORDS SUMMARY | 2025-05-24 09:08 | XMS_ITS | Encounter Summary ---
Author Organization [facility] Address [address] [place] [address] Phone Care Team Providers Care Automotive Software Engineer Name Role Phone Hugo Harrison MD Unavailable [phone] Maninder Avila MD Unavailable [phone] Sheila Prado MD Unavailable [phone] Sheila Prado MD Primary Care Provider + Encounter Details Date Type Department Care Team (Late st Contact Info) Description 02/28/2023 Procedure [facility], [address] [id number] Social History Tobacco Use Types Packs/Day Years [...] on filedocumented in this encounter Care Teams Automotive Software Engineer Relationship Specialty Start Date End Date Sheila Prado MD [address] [place] [address] PCP - General 05/13/17 Hugo Harrison MD [address] [place] [address] Historical LMR Provider 05/13/17 Maninder Avila MD [address] [place] [address] Historical LMR Provider 05/13/17 Sheila Prado MD [address] [place] [address] Historical LMR Provider 05/13/17 documented as of this encounter Additional Source Comments The information contained in this document represents components of the legal health record. It is not the complete legal health record.[facility]
--- OUTSIDE RECORDS SUMMARY | 2025-05-24 09:08 | XMS_ITS | Encounter Summary ---
Author Organization [facility] Address [address] [facility] [address] [place] [address] Phone Care Team Providers Care Solutions Engineer Name Role Phone Taylor Brand PA-C Unavailable Kyle Callejas MD Unavailable Hugo Harrison MD Unavailable Tommy Newell MD Unavailable [phone] Maninder Avila MD Unavailable Matthias Delgado MD Unavailable [phone] Sheila Pardo MD Unavailable Aliya Huggins MD Unavailable Sheila Prado MD Primary Care Provider + Encounter Details Date Type Department Care Team (Latest Contact Info) Description 12/26/2018 Transcribe Orders [address] [place] [address] Sheila Prado MD [address] [place] [address] [email or web address] Pure hypercholesterolemia (Primary Dx); Uncontrolled type 2 diabetes mellitus with hyperglycemia Social History Tobacco Use Types Packs/Day Years [...] documented as of this encounter Results * Microalbumin/creatinine ratio, random urine (12/26/2018 7:07 AM EDT) [facility] URINE MICROALBUMIN <1.2 0 - 2.3 mg/dL [facility] URINE CREATININE 177 mg/dL [facility] MICROALB/CRE RATIO NOT CALCULATED 0 - 20 mg/g Cre [facility] Comment:due to Microalbumin <1.2 Urine (Urine) 12/26/2018 7:0 7 AM EDT 12/26/2018 7:13 AM EDT us Sheila Prado MD URINE ORDERABLES Final R esult Performing Organization Address City/[facility]/ZIP Co de Phone Number [address] [address] * (ABNORMAL) Hemoglobin A1c (12/26/2018 7:07 AM EDT) [facility] HEMOGLOBIN A1C 6.2(H) 4.3 - 5.8 % [facility] Blood 12/26/2018 7:07 AM EDT 12/26/2018 7:10 AM EDT us Sheila Prado MD LAB BLOOD ORDERABLES Fin al Result Performing Organization Address City/[facility]/ZIP Co de Phone Number [address] [address] * C-reactive protein, high sensitivity (12/26/2018 7:07 AM EDT) [facility] CRP, HIGH SENSITIVITY 0.4 0.0 - 5.0 mg/L [facility] Comment: Interpretation: hsCRP level (mg/L) Relative Risk <1.0 Low 1.0 - 3.0 Average >3.0 High Neonates (0-3 weeks): 0.1 - 4.1 mg/L Children (2 months - 15 years): 0.1 - 2.8 mg/L Blood 12/26/2018 7:07 AM EDT 12/26/2018 7:10 AM EDT us Sheila Prado MD LAB BLOOD ORDERABLES Fin al Result Performing Organization Address City/[facility] Co de Phone Number [address] [address] * Ferritin (12/26/2018 7:07 AM EDT) FERRITIN 37 13 - 150 ug/L [facility] Blood 12/26/2018 7:07 AM EDT 12/26/2018 7:10 AM EDT us Sheila Prado MD LAB BLOOD ORDERABLES Fin al Result Performing Organization Address [facility] de Phone Number [address] [address] * TSH (12/26/2018 7:07 AM EDT) TSH 1.85 0.27 - 4.20 uIU/mL [facility] Blood 12/26/2018 7:07 AM EDT 12/26/2018 7:10 AM EDT us Sheila Prado MD LAB BLOOD ORDERABLES Fin al Result Performing Organization Address [facility] de Phone Number [address] [address] * (ABNORMAL) Comprehensive metabolic panel (12/26/2018 7:07 AM EDT) SODIUM 142 133 - 146 mmol/L [facility] POTASSIUM 4.5 3.3 - 5.1 mmol/L [facility] CHLORIDE 103 96 - 108 mmol/L [facility] CO2 26 21 - 35 mmol/L [facility] BUN 19 6 - 19 mg/dL [facility] CREATININE 0.80 0.5 - 1.5 mg/dL [facility] GLUCOSE 120(H) 70 - 99 mg/dL [facility] ALBUMIN 4.0 3.9 - 4.8 g/dL [facility] TOTAL PROTEIN 7.5 6.5 - 8.0 g/dL [facility] CALCIUM 9.8 8.4 - 10.3 mg/dL [facility] ALKALINE PHOSPHATASE 77 39 - 117 U/L [facility] TOTAL BILIRUBIN 0.4 0.0 - 1.2 mg/dL [facility] AST 22 0 - 37 U/L [facility] ALT 20 0 - 40 U/L [facility] GLOBULIN 3.5 1 - 4.8 g/dL [facility] EGFR 74 >59 mL/min/1.7 3m2 [facility] Comment:If patient is black, multiply result by 1.159. Estimated glomerular filtration rate calculated using the CKD-EPI equation. ANION GAP 18 10 - 20 mmol/L [facility] Blood 12/26/2018 7:07 AM EDT 12/26/2018 7:10 AM EDT us Sheila Prado MD LAB BLOOD ORDERABLES Fin al Result [facility] [address] [place] [address] * (ABNORMAL) Lipid panel (12/26/2018 7:07 AM EDT) HDL 59 mg/dL [facility] Comment: Interpretation <40 mg/dL: Low HDL cholesterol (major risk factor for CHD) Greater than or equal to 60 mg/dL: High HDL cholesterol ( negative risk factor for CHD) HDL - cholesterol is affected by a number of factors, e.g. smoking, excerise, hormones, sex and age. CHOLESTEROL 147 0 - 240 mg/dL [facility] TRIGLYCERIDES 145 30 - 160 mg/dL [facility] LDL 59 50 - 129 mg/dL [facility] Comment: LDL levels in terms of risk for coronary heart disease: <100 mg/dL: Optimal 100-129 mg/dL: Near or above optimal 130-159 mg/dL: Borderline high 160-189 mg/dL: High >190 mg/dL: Very High CARDIAC RISK RATIO 2.5(L) 3.3 - 4.4 [facility] Blood 12/26/2018 7:07 AM EDT 12/26/2018 7:10 AM EDT us Sheila Prado MD LAB BLOOD ORDERABLES Fin al Result [address] [address] documented in this encounter Visit Diagnoses Diagnosis Pure hypercholesterolemia- Primary Uncontrolled type 2 diabetes mellitus with hyperglycemia documented in this encounter Care Teams Solutions Engineer Relationship Specialty Start Date End Date Sheila Prado MD [address] [place] [address] PCP - General 05/13/17 Taylor Brand PA-C [address] [place] [address] Historical LMR Provider 05/13/17 08/05/21 Kyle Callejas MD [address] [place] [address] [email or web address] Historical LMR Provider 05/13/17 08/05/21 Hugo Harrison MD [address] [place] [address] [email or web address] Historical LMR Provider 05/13/17 Tommy Newell MD [address] [place] [address] Historical LMR Provider 05/13/17 08/05/21 Maninder Avila MD [address] [place] [address] [email or web address] Historical LMR Provider 05/13/17 Matthias Delgado MD [address] [place] [address] [email or web address] Historical LMR Provider 05/13/17 08/05/21 Sheila Prado MD [address] [place] [address] [email or web address] Historical LMR Provider 05/13/17 Aliya Huggins MD [address] [place] [address] [email or web address] Historical LMR Provider 05/13/17 08/05/21 documented as of this encounter Additional Source Comments The information contained in this document represents components of the legal health record. It is not the complete legal health record.[facility]
--- OUTSIDE RECORDS SUMMARY | 2025-05-24 09:09 | XMS_ITS | Encounter Summary ---
Author Organization [facility] Address [address] [place] [phone] Phone Care Team Providers Care Moisture Conditioner Operator Name Role Phone Taylor Brand PA-C Unavailable [phone] Kyle Callejas MD Unavailable Hugo [place] MD Unavailable [phone] Tommy Newell MD Unavailable [phone] Maninder Avila MD Unavailable Matthias Delgado MD Unavailable Sheila Prado MD Unavailable [phone] Aliya Huggins MD Unavailable Sheila Prado MD Primary Care Provider + Encounter Details Date Type Department Care Team (Latest Contact Info) Description 03/09/2020 Transcribe Orders [address] [place] [address] Alpesh Neves MD, [place] [address] [place], [place] [id number] Pre-op examination (Primary Dx) Social History Tobacco Use Types [...] documented as of this encounter Results * CBC (03/09/2020 1:17 PM EDT) WBC 6.01 4.00 - 11.00 K/uL [facility] Comment:Note Reference Range updates to all CBC and Differential results. RBC 4.54 3.72 - 5.30 M/uL [facility] HGB 14.4 11.4 - 15.9 g/dL [facility] Comment:Note updated Referen ce Ranges for all CBC and Differential results. HCT 40.9 34.2 - 46.8 % [facility] PLT 273 140 - 430 K/uL [facility] MCV 90.1 78.0 - 97.0 fL [facility] MCH 31.7 25.0 - 33.0 pg [facility] MCHC 35.2 32.0 - 36.0 g/dL [facility] RDW 12.3 11.0 - 16.0 % [facility] MPV 9.6 8.4 - 12.8 [facility] NRBC 0.00 0 /100 WBCs [facility] ABSOLUTE NRBC 0.00 0 K/uL [facility] Blood 03/09/2020 1:17 PM EDT 03/09/2020 1:21 PM EDT us Alpesh Neves MD, [place] LAB BLOOD ORDERABLES Final Result [facility] [address] [place] [address] * BUN (03/09/2020 1:17 PM EDT) BUN 18 6 - 19 mg/dL [facility] Blood 03/09/2020 1:17 PM EDT 03/09/2020 1:21 PM EDT SADIA Rodriguez MDA LAB BLOOD ORDERABLES Final Result Performing Organization Address [facility] Co de Phone Number [address] [address] * Creatinine/eGFR (03/09/2020 1:17 PM EDT) CREATININE 0.90 0.5 - 1.5 mg/dL [facility] EGFR 63 >59 mL/min/1.7 3m2 [facility] Comment:Estimated glomerular filtration rate calculated using the CKD-EPI equation. Blood 03/09/2020 1:17 PM EDT 03/09/2020 1:21 PM EDT Alpesh Neves MD, [place] LAB BLOOD ORDERABLES Final Result Performing Organization Address [facility] de Phone Number [address] [address] * PTT (03/09/2020 1:17 PM EDT) APTT 28.5 25.1 - 36.5 sec [facility] Comment:APTT response to unf ractionated heparin concentrations between 0.3 and 0.7 IU/mL is typically 54.0-94.0 seconds in uncomplicated cases. The Anti-Xa assay is the preferred method. Blood 03/09/2020 1:17 PM EDT 03/09/2020 1:21 PM EDT Alpesh Neves MD, [place] LAB BLOOD ORDERABLES Final Result Performing Organization Address [facility] Co de Phone Number [address] [address] * PT-INR (03/09/2020 1:17 PM EDT) PT 11.5 10.2 - 12.9 sec [facility] INR 1.0 0.9 - 1.1 [facility] Comment:Therapeutic range fo r oral Vitamin K antagonists: 2.0-3.5 Blood 03/09/2020 1:17 PM EDT 03/09/2020 1:21 PM EDT Alpesh Neves MD, K[place] LAB BLOOD ORDERABLES Final Result [address] [address] documented in this encounter Visit Diagnoses Diagnosis Pre-op examination- Primary documented in this encounter Care Teams Moisture Conditioner Operator Relationship Specialty Start Date End Date Sheila Prado MD [address] [place] [address] [email or web address] PCP - General 05/13/17 Taylor Brand PA-C [address] [place] [address] [email or web address] Historical LMR Provider 05/13/17 08/05/21 Kyle Callejas MD [address] [place] [address] [email or web address] Historical LMR Provider 05/13/17 08/05/21 [place] MD [address] [place] [address] [email or web address] Historical LMR Provider 05/13/17 Tommy [place] MD [address] [place] [address] [email or web address] Historical LMR Provider 05/13/17 08/05/21 Maninder Avila MD [address] [place] [address] [email or web address] Historical LMR Provider 05/13/17 Matthias Delgado MD [address] [address] [email or web address] Historical LMR Provider 05/13/17 08/05/21 Sheila Prado MD [address] [place] [address] [email or web address] Historical LMR Provider 05/13/17 Aliya [place]gins MD [address] [place] [address] [email or web address] Historical LMR Provider 05/13/17 08/05/21 documented as of this encounter Additional Source Comments The information contained in this document represents components of the legal health record. It is not the complete legal health record.[facility]
--- OUTSIDE RECORDS SUMMARY | 2025-05-24 09:09 | XMS_ITS | Encounter Summary ---
Author Organization [facility] Address [address] [place] [address] Phone Care Team Providers Care Building Carpenter Name Role Phone Taylor Brand PA-C Unavailable Kyle Callejas MD Unavailable [phone] [place] MD Unavailable [phone] Tommy Newell MD Unavailable [phone] Maninder Avila MD Unavailable [phone] Matthias Delgado MD Unavailable [phone] Sheila Prado MD Unavailable [phone] Aliya Huggins MD Unavailable Sheila Prado MD Primary Care Provider + Reason for Referral * MRI/CAT Scan - Closed Specialty Diagnoses / Procedures Referred By Contac t Referred To Contact Radiology Diagnoses Coronary artery disease involving s[place]mie heart without angina pectoris, unspecified vessel or lesion type Precordial pain Procedures NC Myocardial Perfusion Stress Single NC Myocardial Perfusion Pharmacologic Stress Multiple Hugo [place] MD Phone: tel: fax: [email or web address] Referral ID Status Reason Start Date Expiration Date Visits Re quested Visits Authorized [id number] Closed 09/10/2017 11/08/2017 1 1 Encounter Details Date Type Department Care Team (Latest Contact Info) Description 09/24/2017 Ancillary Orders [facility] [address] [facility] [address], [address] [place] [address] [place] MD [address] [facility], [address] [place] [address] [email or web address] Coronary artery disease involving s[place]qualmie heart without angina pectoris, unspecified vessel or lesion type; Precordial pain Social History Tobacco Use Types Packs/Day Years [...] documented as of this encounter Results * NC Myocardial Perfusion Stress Single (09/24/2017 2:06 PM EST) Anatomical Region Laterality Modality Heart Ultrasound Narrative 09/27/2017 8:47 AM EST Normal study. There is no evidence of myocardial infarction or ischemia. Normal LV size and function with no regional wall motion abnormalities. Very low likelihood of hemodynamically significant coronary artery disease. Low risk study for myocardial events or cardiac in the next two years. Study Quality Overall image quality is good. There are no artifacts present. NC Study Impression Left ventricular perfusion is normal. Interpretation of the study indicates that it is normal. This is a low risk study. There is no prior study for comparison. Stress Test Result [facility] Exercise Stress Test Report: Reason for termination: Protocol complete Summary: Resting ECG: SR HR 68 NSSTW, IVCD Functional capacity: Not assessed Heart rate response to exercise: Not assessed Blood pressure response to exercise: Not assessed Chest pain: none Arrhythmias: none ST-T changes: none Overall impression: Nondiagnostic stress test Conclusion: Pharmacologic stress test. Patient unable to complete test on TM due arthritis. The patient was infused with 0.4 mg of Regadenoson (Lexiscan) intravenously over 10 seconds followed immediately by the injection of the Tc99m Sestamibi. Patient reported chest tightness approximately 1.5 minutes after Lexiscan infusion which resolved within a minute. Test terminated due to completion of protocol. Summary: 1. EKG: No EKG changes suggestive of ischemia 2. Symptoms: Patient reported chest tightness approximately 1.5 minutes after Lexiscan infusion which resolved within a minute. 3. Exercise physiology: Not assessed due to pharmacologic study 4. Arrhythmia: None Conclusion: Nondiagnostic pharmacologic stress test. No ischemic EKG changes from baseline with pharmacologic protocol. Patient reported chest tightness approximately 1.5 minutes after Lexiscan infusion which resolved within a minute. Patient hemodynamically stable at completion of exam. Nuclear image results pending. EKG reviewed with Dr. [place]. Bettina Wing NP Nuclear Cardiology Measurements End systolic (mL): 16 End diastolic (mL): 51 Ejection Fraction (%): 68 Ejection Fraction: Normal (50-69%) The left ventrical is functioning with normal perfusion quality. Patient was injected with 11.8mCi of Tc99m Sestamibi Lt AC IV during stress NC Conclusion Normal study. There is no evidence of myocardial infarction or ischemia. Normal LV size and function with no regional wall motion abnormalities. Very low likelihood of hemodynamically significant coronary artery disease. Low risk study for myocardial events or cardiac in the next two years. Perfusion Scoring Stress Summed Score: 0 Percent Normal: 0.00% The left ventricular perfusion is normal. [place] MD CV NM CARDIAC Final Resul t documented in this encounter Visit Diagnoses Diagnosis Coronary artery disease involving s[place]qualmie heart without angina pectoris, unspecified vessel or lesion type Precordial pain Coronary artery disease involving s[place]mie heart without angina pectoris, unspecified vessel or lesion type Precordial pain documented in this encounter Care Teams Building Carpenter Relationship Specialty Start Date End Date Sheila Prado MD [address] [place] [address] PCP - General 05/13/17 Taylor Brand, JULIO [address] [place] [address] [email or web address] Historical LMR Provider 05/13/17 08/05/21 Kyle Callejas MD [address] [place] [address] [email or web address] Historical LMR Provider 05/13/17 08/05/21 [place] MD [address] [address] [email or web address] Historical LMR Provider 05/13/17 Tommy [place] MD [address] [place] [address] [email or web address] Historical LMR Provider 05/13/17 08/05/21 Maninder Avila MD [address] [place] [address] [email or web address] Historical LMR Provider 05/13/17 Matthias Delgado MD [address] [place] [address] [email or web address] Historical LMR Provider 05/13/17 08/05/21 Sheila Prado MD [address] [place] [address] [email or web address] Historical LMR Provider 05/13/17 Aliya [place]gins MD [address] [place] [address] [email or web address] Historical LMR Provider 05/13/17 08/05/21 documented as of this encounter Additional Source Comments The information contained in this document represents components of the legal health record. It is not the complete legal health record.[facility]
--- OUTSIDE RECORDS SUMMARY | 2025-05-24 09:09 | XMS_ITS | Clinical Summary ---
Author Organization [facility] Address [address] [place] [phone] Phone Care Team Providers Care Filtration Operator Name Role Phone Hugo Harrison MD Unavailable Maninder Avila MD Unavailable [phone] Sheila Prado MD Unavailable [phone] Sheila Prado MD Primary Care Provider + Allergies Active Allergy Reactions Criticality Noted Date Comments Adhesive Tape-Silicones 07/07/2018 Morphine Anaphylaxis High 09/09/2017 Medications aspirin 81 MG EC tablet 1 tablet Active dilTIAZem (CARTIA XT) 240 MG 24 hr capsule 1 capsule Active coenzyme Q10 (CO Q-10) 200 mg capsule 1 capsule with a meal Active DULoxetine (CYMBALTA) 30 MG capsule 60 mg. Active omega-3 fatty acids-fish oil (FISH OIL) 360-1,200 mg Cap 1 capsule Act kam magnesium oxide 250 mg (150 mg elemental) Tab 400mg tab. 1 tablet with a meal Active metFORMIN (GLUCOPHAGE) 500 MG tablet 2 tablet Active omeprazole (PRILOSEC) 40 MG capsule 1 capsule Active vitamin B comp with C no.4 (SUPER B COMPLEX + C) 150 mg Tab as directed Active vitamin E 400 unit Cap Take 400 Units by mouth daily. Active nitroglycerin (NITROSTAT) 0.[address] 0.3 mg under the tongue every 5 (five) minutes as needed for chest pain. Active CINNAMON BARK-CHROMIUM PICOLIN ORALIndications:1 cap daily Take 2,000 mg by mouth. Indications: 1 cap daily Active ferrous sulfate 325 mg (65 mg lovelock iron) tablet Take 325 mg by mouth daily with breakfast. Active albuterol sulfate (PROAIR RESPICLICK) 90 mcg/actuation AePB Take 2 puffs by mouth 4 (four) times a day as needed. 1 each 11 2 Active isosorbide mononitrate (IMDUR) 60 MG 24 hr tabletIndications:C oronary artery disease of wilton artery of wilton heart with stable angina pectoris TAKE 2 TABLETS DAILY 180 tablet 3 3 Active rosuvastatin (CRESTOR) 40 MG tabletIndications:H yperlipidemia, unspecified hyperlipidemia type Take 1 tablet (40 mg total) by mouth daily. 90 tablet 3 3 Active metoprolol tartrate (LOPRESSOR) 25 MG tabletIndications:C oronary artery disease involving wilton heart without angina pectoris, unspecified vessel or lesion type TAKE 1 TABLET TWICE A DAY 180 tablet 3 3 Active carbidopa-levodopa (SINEMET) 10-100 mg per tablet Take 1 tablet by mouth 3 (three) times a day. Active Active Problems Problem Noted Date Diagnosed Date Angina at rest 07/01/2018 Assessment & Plan (09/27/2021 2:41 PM EST): Denies any anginal symptoms at this time. Assessment & Plan (07/01/2018 12:19 PM EST): This is a 73-year-old female with known stenosis in the LAD presenting with an episode of significant chest pain relieved by nitroglycerin. Her EKG is unchanged from priors that are available. Her first set of enzymes are negative. She is asymptomatic after the placement of Nitropaste. Son and daughter at the bedside and updated. Case discussed with cardiology. In more discussions with the bobbin presser it sounds like she is probably been having more angina than she initially reports. If there are changes in the enzymes or worsening pain she will be transferred for catheterization. If she remains stable this might be set up as an outpatient. There are no other symptoms to suggest GI symptoms or pulmonary symptoms at this time. Chest pain 07/01/2018 Assessment & Plan (07/07/2018 10:21 AM EST): She is no longer having chest pain on her current regimen. Will follow up in 2-3 months. Consider nuclear stress test next year. Type 2 diabetes mellitus wit hout complication, without long-term current use of insulin 06/27/2018 Assessment & Plan (07/01/2018 12:23 PM EST): Hold metformin for right now as she might need further imaging. Diabetic diet and sliding scale insulin. Sarcoidosis 01/01/2018 Assessment & Plan (01/01/2018 9:57 PM EDT): All parameters appear stable. Continue off Vitamin D. Encouraged optho follow- up. Will repeat PFTs in one year. Moderate persistent asthma without complication 01/01/2018 Assessment & Plan (02/04/2019 1:24 PM EDT): Stable. Cont on PRN albuterol. Assessment & Plan (07/01/2018 12:20 PM EST): Patient states that her asthma is quite controlled generally. She does however describe dyspnea on exertion when she goes for long walks or she does housework. She always attributes this to her asthma or sarcoidosis and had been thinking of it as potentially an anginal equivalent. Assessment & Plan (01/01/2018 9:59 PM EDT): 4% eos on bloodwork and IgE of 136. Patient is feeling quite stable, though using inhalers. Recommend fresh inhalers and refills sent. Needs rescue every few months at most. Limited by musculoskeletal issues rather than her breathing at this point. Considering hip surgery. Coronary artery disease 09/09/2017 Assessment & Plan (06/18/2024 1:57 PM EST): She denies any chest pain but is having some shortness of breath with activity in addition she is also having some new bilateral lower extremity edema which is worse than it has been in the past. She is also potentially going to be having hip surgery and she has not had a stress test in some time. We are going to go ahead and assess her for any further ischemia or infarct with a pharmaceutical stress test in preparation for possible hip replacement. Assessment & Plan (09/27/2021 2:40 PM EST): She continues to be asymptomatic. She is on aspirin 81 mg daily which she should remain on lifelong. She does exercise by walking and doing some knee bends. Assessment & Plan (10/06/2018 3:25 PM EDT): Catheterization in 2015 showed moderate to severe stenosis in the proximal LAD, 60-70%. She has not had any chest pain on her current meds. She had a nuclear stress test done last year which showed no evidence of ischemia or previous OR. She should continue these current meds. We will continue to optimize her risk factors. Her blood pressure today is normal. Last lipid panel done over the summer last year showed an LDL of less than 70. She should continue her current dose of Crestor. Assessment & Plan (07/07/2018 10:20 AM EST): Catheterization in 2015 showed moderate to severe stenosis in the proximal LAD, 60-70%. It sounds like she has been having angina possibly since her catheterization although she reports that there was an improvement in her symptoms since starting her medications. Her ischemic evaluation during her hospitalization was negative. She did have a nuclear stress test in August of this year which was negative for ischemia or previous OR. She is tolerating the increase in her isosorbide. She reports that she is no longer having exertional chest pressure. I have suggested that she continue her meds at their current doses. I will follow-up with her in 2-3 months to reevaluate her symptoms. We will consider repeating her nuclear stress test next year. If her symptoms progress, we will arrange for catheterization to be done at [facility] to reevaluate her LAD stenosis. Assessment & Plan (09/09/2017 10:32 AM EST): She does has a history of coronary artery disease with a moderate to severe stenosis in her LAD on a catheter in April 2016. With medical management she seems to be doing well. It's been a couple years side like to get a nuclear stress test to make sure that this stenosis has not progressed. We'll do this in the summer and follow-up with her after that is done. She should remain on aspirin lifelong we will continue to optimize her other cardiac risk factors. Precordial pain 09/09/2017 Dyspnea on exertion 09/09/2017 Assessment & Plan (06/18/2024 1:59 PM EST): She continues to have some dyspnea on exertion and now has some bilateral lower extremity edema. She reports that her edema did improve with the Lasix though she did have to go up to 40 mg and as a result of this did end up with some hypotension receiving IV fluids for this. She is not drinking enough fluids and I have encouraged her to drink more fluids up to 60 ounces and to increase her diuretic to 40 mg for the next 2 to 3 days weighing herself daily looking for weight gain of 3 pounds in 2 days or 5 pounds over a week that is not coming off of the diuretic. Her left leg is worse than her right. She is active but mostly sedentary. We are going to get an echocardiogram to assess some of her dyspnea on exertion along with her bilateral lower extremity edema. She was encouraged to follow a low- sodium diet having no more than 2500 mg daily. If bilateral lower extremity edema continues we can consider stopping her diltiazem and putting her on another agent as diltiazem can also cause bilateral lower extremity edema. Assessment & Plan (09/27/2021 2:42 PM EST): She continues to have dyspnea which is stable. She follows Dr. Fragoso from pulmonology. Assessment & Plan (02/04/2019 1:26 PM EDT): Stable dyspnea. Mainly limited by mobility. PFTs are stable. Patient is at low risk for perioperative pulmonary complications. In fact, on the senior care, surgery to improve her exercise capacity will be the best thing for her pulmonary status. Assessment & Plan (09/09/2017 10:32 AM EST): This is likely multifactorial. Like to get her nuclear stress test to make sure her ischemia has not progressed. Essential hypertension 09/09/2017 Assessment & Plan (06/18/2024 1:57 PM EST): Blood pressure is well-controlled today 124/76. She is on diltiazem 240 mg daily, isosorbide 60 mg daily, Toprol 25 mg twice daily which she will continue without change. Assessment & Plan (09/27/2021 2:41 PM EST): Her blood pressure homes have been running 140 systolically and at times in the low 130s. She is on diltiazem 240 mg daily,Metoprolol 25 mg daily, isosorbide mononitrate 60 mg daily. Encouraged to follow heart healthy diet including low-sodium. Assessment & Plan (10/06/2018 3:25 PM EDT): Pressure today is normal. Continue current meds. Assessment & Plan (07/07/2018 10:21 AM EST): Blood pressure today is normal. Continue current meds. (She came in with a list of her BPs from home, all within normal range). Assessment & Plan (07/01/2018 12:19 PM EST): Continue her regular medications. Assessment & Plan (09/09/2017 10:32 AM EST): Her blood pressure is excellent on the current meds. Hyperlipidemia 09/09/2017 Assessment & Plan (09/27/2021 2:42 PM EST): Continue rosuvastatin 40 mg daily Assessment & Plan (10/06/2018 3:25 PM EDT): Controlled on her current dose of Crestor. Assessment & Plan (07/07/2018 10:22 AM EST): Lipid panel from earlier this year shows good control with a total cholesterol of 146, HDL 63, LDL 59, try glycerides 119. Continue Crestor. Assessment & Plan (09/09/2017 10:32 AM EST): Her lipids are well controlled on the current meds and continue this. Family History Medical History Relation Comments CV disease Father Diabetes mellitus Father Hypertension Father Breast cancer Sister Relation Status Comments Father Mother Sister Social History Tobacco Use Types Packs/Day Years Used Date Smoking Tobacco: Never Smokeless Tobacco: Never Tobacco Cessation:Counseling Given: Not Answered Comments:Exposed to second hand smoke most of her life Alcohol Use [...] Orientation Straight 03/08/2020 2: 08 PM EDT Last Filed Vital Signs Vital Sign Reading Time Taken Comments Blood Pressure 140/70 07/01/2024 10:03 AM EST Pulse 81 06/18/2024 1:00 PM EST Temperature 37 C (98.6 F) 07/01/2018 11:17 AM EST Respiratory Rate 16 07/01/2018 11:17 AM EST Oxygen Saturation 97% 07/01/2024 10:00 AM EST Inhaled Oxygen Concentration - - Weight 79.8 kg (176 lb) 03/26/2023 10:21 AM EDT Height 160 cm (5' 2.99 ) 06/18/2024 1:00 PM EST Body Mass Index 31.18 03/26/2023 10:21 AM EDT Plan of Treatment Health Maintenance Due Date Last Done Comments Adult Td,Tdap Booster 1945 DEPRESSION SCREENING 1958 HEPATITIS C SCREENING 1964 PNEUMOCOCCAL VACCINES (50+ years) (1 of 2 - PCV) 1965 ZOSTER VACCINES (1 of 2) 1996 OSTEOPOROSIS SCREENING INITIAL (ONE-TIME) 2011 DIABETIC EYE EXAM 12/25/2017 RSV VACCINE (1 - 1-dose 75+ series) 2021 URINE MICROALBUMIN/CREATININE RATIO 12/29/2021 12/29/2020, 12/26/2018, 12/25/2017 CREATININE LEVEL 11/22/2023 11/21/2022, 09/2020, 03/09/2020, Additional history exists HEMOGLOBIN A1C 12/03/2024 06/05/2024, 04/2 12/2022, 12/26/2018, Additional history exists BLOOD PRESSURE 12/16/2024 06/18/2024 INFLUENZA VACCINE (#1) 2025 05/09/2020 COVID-19 VACCINE ( season) 2025 SMOKING STATUS SCREENING (Once After 26 Yrs) Completed 06/18/2024 HEPATITIS A VACCINES Aged Out No long er eligible based on patient's age to complete this topic HIB VACCINES Aged Out No longer eligi ble based on patient's age to complete this topic MENINGOCOCCAL VACCINES (ACWY) Aged Out No longer eligible based on patient's age to complete this topic MENINGOCOCCAL VACCINES (B) Aged Out N o longer eligible based on patient's age to complete this topic Medical Devices Not on file Procedures Procedure Name Priority Date/Time Associated Diagnosis Comments HEMOGLOBIN A1C Routine 11/21/2022 12:00 PM EDT Coronary artery disease involving wilton coronary artery of wilton heart without angina pectoris Essential hypertension Dyspnea on exertion Pure hypercholesterolemia COMPREHENSIVE METABOLIC PANEL Routine 11/21/2022 12:00 PM EDT Coronary artery disease involving wilton coronary artery of wilton heart without angina pectoris Essential hypertension Dyspnea on exertion Pure hypercholesterolemia MICROALBUMIN/CREATI NINE RATIO, RANDOM URINE Routine 12/29/2020 7:45 AM EDT Routine general medical examination at a health care facility Diabetes mellitus of other type without complication, unspecified whether senior care insulin use from Last 3 Months or Most Recently Relevant to Health Maintenance Results * (ABNORMAL) Comprehensive metabolic panel (11/21/2022 12:00 PM EDT) SODIUM 138 133 - 146 mmol/L [facility] POTASSIUM 4.8 3.3 - 5.1 mmol/L [facility] CHLORIDE 101 96 - 108 mmol/L [facility] CO2 25 21 - 35 mmol/L [facility] BUN 23(H) 6 - 19 mg/dL [facility] CREATININE 0.80 0.5 - 1.5 mg/dL [facility] GLUCOSE 103(H) 70 - 99 mg/dL [facility] ALBUMIN 4.3 3.9 - 4.8 g/dL [facility] TOTAL PROTEIN 7.4 6.5 - 8.0 g/dL [facility] CALCIUM 10.4(H) 8.4 - 10.3 mg/dL [facility] ALKALINE PHOSPHATASE 84 39 - 117 U/L [facility] TOTAL BILIRUBIN 0.3 0.0 - 1.2 mg/dL [facility] AST 26 0 - 37 U/L [facility] ALT 20 0 - 40 U/L [facility] GLOBULIN 3.1 1 - 4.8 g/dL [facility] EGFR 76 >59 mL/min/1.7 3m2 [facility] Comment:Estimated glomerular filtration rate calculated using the CKD-EPI refit equation. ANION GAP 17 10 - 20 mmol/L [facility] Blood 11/21/2022 12:0 0 PM EDT 11/21/2022 12:07 PM EDT Hugo Harrison MD LAB BLOOD ORDERABLES Final Result Performing Organization Address [facility] Co de Phone Number [address] [phone] * (ABNORMAL) Hemoglobin A1c (11/21/2022 12:00 PM EDT) HEMOGLOBIN A1C 6.5(H) 4.3 - 5.8 % [facility] Blood 11/21/2022 12:0 0 PM EDT 11/21/2022 12:08 PM EDT Hugo Harrison MD LAB BLOOD ORDERABLES Final Result Performing Organization Address [facility]/ZIP Co de Phone Number [address] [phone] * (ABNORMAL) Microalbumin/creatinine ratio, random urine (12/29/2020 7:45 AM EDT) URINE MICROALBUMIN 3.1(H) 0 - 2.3 mg/dL [facility] URINE CREATININE 194 mg/dL [facility]DROM[facility] MICROALB/CRE RATIO 16.0 0 - 20 mg/g Cre [facility] Urine (Urine) 12/29/2020 7:4 5 AM EDT 12/29/2020 7:51 AM EDT us Sheila Prado MD URINE ORDERABLES Final R esult [facility] [address] [place], [place] [id number] from Last 3 Months or Most Recently Relevant to Health Maintenance Insurance [facility] MEDICARE PART A & B GENERIC MEDICARE REPLACEMENT [place] GENER[place]IC[place] RE[place] & B GENERIC MEDICARE REPLACEMENT [facility] MEDICARE PART A & B GENERIC MEDICARE [place]AC[place] & B GENERIC MEDICARE RE[place]AC[place] PART [place] & B GENERIC MEDICARE REPLACEMENT Advance Directives For more information, please contact: [phone] (9AM - 5PM [place], Saturday-Saturday) Documents on File Type Date Recorded Patient Lead Database Developer Expl anation Healthcare Proxy 07/03/2018 10:45 AM proxy * Full Code (Confirmed) (Latest Code Status on File) Date Activated Date Inactivated Comments 07/01/2018 9:29 AM 07/01/2018 6:53 PM Question Answer Comments Code Status Confirmed With: Patient Care Teams Filtration Operator Relationship Specialty Start Date End Date Sheila Prado MD [address] [place] [id number] [email or web address] PCP - General 05/13/17 Hugo Harrison MD [address] [place] [id number] [email or web address] Historical LMR Provider 05/13/17 Maninder Avila MD [address] [place] [id number] [email or web address] Historical LMR Provider 05/13/17 Sheila Prado MD [address] [place] [id number] [email or web address] Historical LMR Provider 05/13/17 Additional Source Comments The information contained in this document represents components of the legal health record. It is not the complete legal health record.[facility]
== END 2025-05-24 09:45 | disposition home or self-care (01) ==
LOC: HO.HSMS 08:41
PROVIDERS: Visit Provider Psychiatry & Neurology Neurology
DX: G20.A1 Parkinson's disease without dyskinesia, without mention of fluctuations (principal); M47.812 Spondylosis without myelopathy or radiculopathy, cervical region; R26.9 Unspecified abnormalities of gait and mobility; G25.81 Restless legs syndrome
CPT/HCPCS: 99214; G2211

== ENCOUNTER → 2025-05-24 08:40 | Outpatient (BNVA) | payer OTHER, SELFPAY | PROVIDERS: Visit Provider Psychiatry & Neurology Neurology | DX: G20.A1 Parkinson's disease without dyskinesia, without mention of fluctuations (principal); M47.812 Spondylosis without myelopathy or radiculopathy, cervical region; R26.9 Unspecified abnormalities of gait and mobility; G25.81 Restless legs syndrome | CPT/HCPCS: 99212 ==